=== PATIENT | female | born 1970 | race Caucasian/White ===

== ENCOUNTER 2019-01-15 13:14 | Emergency (ER) | payer OTHER ==
[2019-01-15] MEDS ORDERED: DIPHENHYDRAMINE 50 MG INJ IV (15:00)
[2019-01-15] MEDS: DEXAMETHASONE 10 MG/ML 1 ML INJ IM (15:03)
[2019-01-15] MEDS: DIPHENHYDRAMINE 50 MG CAP PO (15:14)
== END 2019-01-15 15:17 | disposition home or self-care (01) ==
LOC: FTE 13:14
DX: S80.862A Insect bite (nonvenomous), left lower leg, initial encounter (principal); S80.861A Insect bite (nonvenomous), right lower leg, initial encounter; F17.210 Nicotine dependence, cigarettes, uncomplicated; W57.XXXA Bitten or stung by nonvenomous insect and other nonvenomous arthropods, initial encounter; Y92.9 Unspecified place or not applicable
CPT/HCPCS: 96372; 99284-25